=== PATIENT | male | born 2000 | race African-American/Black ===

== ENCOUNTER 2023-07-19 00:27 | Emergency (ER) | payer OTHER ==
[2023-07-19 01:16] LABS: HEMATOCRIT 45.1 % (42.0-52.0); HEMOGLOBIN 14.9 g/dl (13.5-17.5); MEAN CORPUSCULAR HEMOGLOBIN 27.3 pg (27.0-33.0); MEAN CORPUSCULAR VOLUME 82.6 fl (80.0-96.0); PLATELET COUNT, AUTOMATED 205 10^3/uL (150-450); RED BLOOD COUNT 5.46 10^6/uL (4.30-6.10); WHITE BLOOD COUNT 5.8 10^3/uL (4.0-10.0)
[2023-07-19 01:43] LABS: ETHYL ALCOHOL (ETHANOL) 0.003 % (0.000-0.010)
[2023-07-19 01:45] LABS: ALBUMIN 4.1 G/DL (3.2-5.2); ALKALINE PHOSPHATASE 69 U/L (46-116); ALT/SGPT 24 U/L (7.0-40); AST/SGOT 30 U/L (<34); BILIRUBIN,DIRECT 0.3 MG/DL (<0.4); BILIRUBIN,TOTAL 0.8 MG/DL (0.3-1.2); BLOOD UREA NITROGEN 14 MG/DL (9-23); CALCIUM LEVEL 9.9 MG/DL (8.5-10.1); CARBON DIOXIDE LEVEL 29 MMOL/L (20-31); CHLORIDE LEVEL 105 MMOL/L (98-107); CREATININE FOR GFR 1.15 MG/DL (0.70-1.30); GLOMERULAR FILTRATION RATE > 60.0 (>60); GLUCOSE, FASTING 102 MG/DL (60-100); POTASSIUM SERUM 3.6 MMOL/L (3.5-5.1); SALICYLATE LEVEL < 3.0 MG/DL (<30); SODIUM LEVEL 142 MMOL/L (136-145)
[2023-07-19 01:47] LABS: THYROID STIMULATING HORMONE 2.848 uIU/ML (0.55-4.78)
[2023-07-19 01:54] LABS: AMPHETAMINES LEVEL URINE NEGATIVE (NEGATIVE); BARBITURATES URINE NEGATIVE (NEGATIVE)
[2023-07-19 01:55] LABS: BENZODIAZEPINES URINE NEGATIVE (NEGATIVE); CANNABINOIDS URINE NEGATIVE (NEGATIVE); COCAINE METABOLITE URINE NEGATIVE (NEGATIVE); METHADONE URINE NEGATIVE (NEGATIVE); OPIATES URINE NEGATIVE (NEGATIVE); PHENCYCLIDINE URINE NEGATIVE (NEGATIVE)
[2023-07-19] MEDS ORDERED: HOME MED LIST COMPLETE! XX SCH (07:55)
[2023-07-19 14:00] VITALS: BP 136/78; TEMP 98.2; O2SAT 97
== END 2023-07-19 14:27 | disposition home or self-care (01) ==
LOC: M ED 00:27
DX: Z04.9 Encounter for examination and observation for unspecified reason (principal); F10.10 Alcohol abuse, uncomplicated; Z63.0 Problems in relationship with spouse or partner

== ENCOUNTER 2024-03-15 20:22 | Emergency (ER) | payer OTHER ==
[~2024-03-15] VITALS: Ht 170.2 cm; Wt 87.3 kg
[2024-03-16] MEDS ORDERED: VENTAER INH (01:38)
[2024-03-16] MEDS ORDERED: BENZ200C70 PO (01:38)
[2024-03-16] MEDS: BENZONATATE 100MG CAPSULE PO ONE (01:40)
[2024-03-16 01:57] VITALS: BP 127/76; TEMP 97.9; O2SAT 97
== END 2024-03-16 02:00 | disposition home or self-care (01) ==
LOC: M ED 03-16 01:20
DX: J21.9 Acute bronchiolitis, unspecified (principal); Z79.52 Long term (current) use of systemic steroids; Z79.899 Other long term (current) drug therapy